=== PATIENT | female | born 1960 | race Asian ===

== ENCOUNTER 2023-08-11 06:37 | Day surgery (SDC) | payer OTHER ==
[2023-08-06 15:34] VITALS: BMI 27.3
[2023-08-11] MEDS: PHENYLEPHRINE 2.5% OPTHALMIC DROP 2ML BOTTLE ONE (07:05)
[2023-08-11] MEDS: TROPICAMIDE 1% OPHTH SOLN 15 ML BOTTLE ONE (07:05)
[2023-08-11] MEDS: CYCLOPENTOLATE 2% OPHTH SOLN 2 ML BOTTLE ONE (07:05)
[2023-08-11] MEDS: CIPROFLOXACIN 0.3% EYE DROPS 5 ML BOTTLE ONE (07:05)
[2023-08-11] MEDS ORDERED: CARBACHOL 0.01% INTRA-OCULAR 1.5 ML VIAL ONE (07:18)
[2023-08-11] MEDS ORDERED: NEO/POLYMYX B SULF/DEXAMETH OPHTHALMIC 5ML BOTTLE ONE (07:18)
[2023-08-11] MEDS ORDERED: TETRACAINE 0.5% OPHTH SOLN 2 ML BOTTLE ONE (07:18)
[2023-08-11] MEDS ORDERED: EPINEPHrine/PF 1 MG/1 ML (1:1,000) AMPULE ONE (07:18)
[2023-08-11] MEDS ORDERED: LIDOCAINE 1% P/F 10 MG/ML VIAL ONE (07:18)
[2023-08-11] MEDS ORDERED: BSS (NA/CA/MG/K) BALANCED SALT SOLUTION OPHTH SOLN 15 ML BOTTLE ONE (07:18)
[2023-08-11] MEDS ORDERED: MIDAZOLAM HCL 2 MG/2 ML SINGLE DOSE VIAL ONE (08:07)
[2023-08-11 10:11] VITALS: TEMP 97.3
[2023-08-11 10:50] VITALS: BP 140/68; PULSE 60; RESP 17
== END 2023-08-11 09:10 | disposition home or self-care (01) ==
LOC: FASU 06:37
PROVIDERS: ATTEND Ophthalmology
PROC: 08RK3JZ Replacement of Left Lens with Synthetic Substitute, Percutaneous Approach (ICD-10-PCS; principal; 2023-08-11 08:20)
DX: H26.8 Other specified cataract (principal)
CPT/HCPCS: 66984; V2632

== ENCOUNTER 2023-10-07 10:48 | Day surgery (SDC) | payer OTHER ==
[2023-10-01 15:48] VITALS: BMI 27.3
[2023-10-07] MEDS ORDERED: CARBACHOL 0.01% INTRA-OCULAR 1.5 ML VIAL ONE (11:21)
[2023-10-07] MEDS ORDERED: NEO/POLYMYX B SULF/DEXAMETH OPHTHALMIC 5ML BOTTLE ONE (11:21)
[2023-10-07] MEDS ORDERED: TETRACAINE 0.5% OPHTH SOLN 2 ML BOTTLE ONE (11:21)
[2023-10-07] MEDS ORDERED: LIDOCAINE 1% P/F 10 MG/ML VIAL ONE (11:21)
[2023-10-07] MEDS ORDERED: BSS (NA/CA/MG/K) BALANCED SALT SOLUTION OPHTH SOLN 15 ML BOTTLE ONE (11:21)
[2023-10-07] MEDS: CIPROFLOXACIN 0.3% EYE DROPS 5 ML BOTTLE ONE (11:50)
[2023-10-07] MEDS: TROPICAMIDE 1% OPHTH SOLN 15 ML BOTTLE ONE (11:50)
[2023-10-07] MEDS: CYCLOPENTOLATE 2% OPHTH SOLN 2 ML BOTTLE ONE (11:50)
[2023-10-07] MEDS: PHENYLEPHRINE 2.5% OPTHALMIC DROP 2ML BOTTLE ONE (11:50)
[2023-10-07] MEDS ORDERED: MIDAZOLAM HCL 2 MG/2 ML SINGLE DOSE VIAL ONE ×3 (14:13→14:51)
[2023-10-07 14:38] VITALS: RESP 18; TEMP 97.3
[2023-10-07 14:53] VITALS: BP 132/64; PULSE 66
== END 2023-10-07 14:53 | disposition home or self-care (01) ==
LOC: FASU 10:48
PROVIDERS: ATTEND Ophthalmology
PROC: 08RJ3JZ Replacement of Right Lens with Synthetic Substitute, Percutaneous Approach (ICD-10-PCS; principal; 2023-10-07 14:15)
DX: H26.8 Other specified cataract (principal)
CPT/HCPCS: 66984; V2632